=== PATIENT | female | born 1960 | race Caucasian/White ===

== ENCOUNTER 2016-11-29 10:12 | Day surgery (SDC) | payer OTHER ==
[2016-11-28 09:09] VITALS: Ht 160 cm; Wt 90.3 kg
[~2016-11-29] VITALS: Ht 160 cm; Wt 90.3 kg
[2016-11-29] VITALS (10 sets, daily range): BP systolic 120–168; BP diastolic 63–78; PULSE 53–78; RESP 16–21
[2016-11-29] MEDS ORDERED: LOSA50TA6 PO (13:03)
[2016-11-29] MEDS ORDERED: GEMF600T PO (13:03)
[2016-11-29] MEDS ORDERED: METF-382 PO (13:03)
[2016-11-29] MEDS ORDERED: OMEP20CA16 PO (13:03)
[2016-11-29] MEDS ORDERED: LEVO25TA53 PO (13:03)
[2016-11-29] MEDS ORDERED: HYD25 PO (13:03)
[2016-11-29] MEDS ORDERED: VIT D3 PO (13:03)
[2016-11-29] MEDS ORDERED: ATEN-51 PO (13:03)
[2016-11-29] MEDS ORDERED: GABA300C16 PO (13:03)
[2016-11-29] MEDS ORDERED: CEFAZOLIN 2 GM/50 ML (PMX) 50 ML IVPB ONE (13:30)
[2016-11-29] MEDS ORDERED: SOD CHLORIDE 0.9% 1,000 ML IV SCH (14:00)
[2016-11-29] MEDS ORDERED: BUPIVACAINE 0.25% (MPF) 30 ML INJ ONE (14:27)
[2016-11-29] MEDS ORDERED: LABETALOL HCL 20MG INJ IV PRN (14:30)
[2016-11-29] MEDS ORDERED: MEPERIDINE 25 MG INJ IV PRN (14:30)
[2016-11-29] MEDS ORDERED: MIDAZOLAM 1 MG/ML 2 ML INJ IV PRN (14:30)
[2016-11-29] MEDS ORDERED: ONDANSETRON 4 MG INJ IV PRN (14:30)
[2016-11-29] MEDS ORDERED: METOCLOPRAMIDE 10 MG INJ IV PRN (14:30)
[2016-11-29] MEDS ORDERED: FENTAnyl 50 MCG/ML VIAL IV PRN ×2 (14:30)
[2016-11-29] MEDS ORDERED: EPHEDrine SULFATE 50 MG/5 ML SYG IV PRN (14:30)
[2016-11-29] MEDS ORDERED: hydrALAzine 20 MG INJ IV PRN (14:30)
[2016-11-29] MEDS ORDERED: DIPHENHYDRAMINE 50 MG INJ IV PRN (14:30)
[2016-11-29] MEDS ORDERED: morphine (1 MG/ML) 10ML SYRINGE IV PRN ×2 (14:30)
[2016-11-29] MEDS ORDERED: HYDROmorphONE (0.2 MG/ML) 10ML SYG IV PRN ×2 (14:30)
[2016-11-29] MEDS ORDERED: LIDOCAINE 2% (SDV) 5 ML INJ ONE (14:38)
[2016-11-29] MEDS ORDERED: PROPOFOL 20 ML ONE (14:38)
[2016-11-29] MEDS ORDERED: MEPERIDINE 100 MG INJ ONE (14:39)
[2016-11-29] MEDS ORDERED: METOCLOPRAMIDE 10 MG INJ ONE (14:44)
[2016-11-29] MEDS ORDERED: ONDANSETRON 4 MG INJ ONE (14:44)
[2016-11-29] MEDS ORDERED: CEFAZOLIN 1 GM INJ ONE (14:44)
[2016-11-29] MEDS ORDERED: ATROPINE 1 MG/10 ML SYRINGE ONE (15:09)
[2016-11-29] MEDS ORDERED: BUPIVACAINE 0.25% (MPF) 30 ML INJ INJ ONE (15:29)
[2016-11-29] MEDS ORDERED: HYDROCODONE/APAP (5/325) TAB PO ONE (15:30)
--- NOTE | 2016-11-29 15:52 | OPR ---
DATE OF OPERATION: 11/29/2016 INDICATION: This is a 55-year-old female with a left face mass. She requests surgical excision. R isks, alternatives, benefits, and personnel were discussed with the patient. Patient expressed unde rstanding and consents to the operation. PREOPERATIVE DIAGNOSIS: Left face mass. POSTOPERATIVE DIAGNOSIS: Left face mass. OPERATION PERFORMED: 1. Excision of left mass with 3 cm size incision and 3 x 2 cm size mass. 2. Localized adjacent tissue transfer with the use of skin flaps. SURGEON: Filiberto Willson MD SPECIMEN: Left face mass. COMPLICATIONS: None. ANESTHESIA: General. DESCRIPTION OF PROCEDURE: The patient was taken to the OR, prepped and draped in the usual sterile fashion. Surgical timeout was performed. IV antibiotics were given. In the left midface there is a mass lesion. This was excised in elliptical fashion with a 15 blade and dissection cautery. Full- thickness excision was performed. There was good hemostasis. Due to the large tissue defect, local ized adjacent tissue transfer with the use of skin flaps was performed. Multilayer closure with int errupted 3-0 Vicryl and running 4-0 Monocryl. Local anesthesia was injected. Dry dressings were ap plied. Dictated By: FILIBERTO WILLSON MD SB/FORREST Conf#: [id number] DID#: [id number]
== END 2016-11-29 16:45 | disposition home or self-care (01) ==
LOC: SDS 10:12
PROVIDERS: ATTEND Surgery
DX: C44.310 Basal cell carcinoma of skin of unspecified parts of face (principal); E11.9 Type 2 diabetes mellitus without complications; I10 Essential (primary) hypertension; E03.9 Hypothyroidism, unspecified; E78.5 Hyperlipidemia, unspecified; E66.01 Morbid (severe) obesity due to excess calories; Z68.35 Body mass index [BMI] 35.0-35.9, adult
CPT/HCPCS: 14040; 82962; 88307; J0461; J0690; J2175; J2405; J2765; Z7512; Z7610

== ENCOUNTER 2017-04-17 14:11 | Day surgery (SDC) | payer OTHER ==
[2017-04-16 12:09] VITALS: BMI 35.5
[2017-04-17] VITALS (21 sets, daily range): BP systolic 136–174; BP diastolic 66–76; PULSE 54–59; RESP 17–18; Ht 160 cm; Wt 91.2 kg
[~2017-04-17] VITALS: Ht 160 cm; Wt 91.2 kg
[~2017-04-17 14:11] MED LIST: ATEN-51 PO; GABA300C16 PO; GEMF600T PO; HYD25 PO; LEVO25TA53 PO; LOSA50TA6 PO; METF500T4 PO; OMEP20CA16 PO; VIT D3 PO
[2017-04-17] MEDS ORDERED: LACTATED RINGER'S 1,000 ML IV* SCH (15:30)
[2017-04-17] MEDS ORDERED: FENTAnyl 50 MCG/ML VIAL ONE (16:25)
[2017-04-17] MEDS ORDERED: MIDAZOLAM 1 MG/ML 2 ML INJ ONE (16:25)
[2017-04-17] MEDS ORDERED: PROPOFOL 40 ML ONE (16:25)
[2017-04-17] MEDS ORDERED: METOCLOPRAMIDE 10 MG INJ ONE (16:25)
[2017-04-17] MEDS ORDERED: BUPIVACAINE 0.5% (SDV) 30 ML INJ ONE (16:30)
[2017-04-17] MEDS ORDERED: LIDOCAINE 1% (STERILE-PAK) 30 ML INJ ONE (16:30)
--- NOTE | 2017-04-17 17:30 | HPN ---
Date/Time of Note Date/Time of Note DATE: 04/17/17 TIME: 17:30 Interval H&P Admission Note Pt. seen H&P reviewed: No system changes JULY BOND Apr 17, 2017 17:30
[2017-04-17] MEDS ORDERED: CEFAZOLIN 1 GM INJ ONE (17:37)
[2017-04-17] MEDS ORDERED: PROPOFOL 20 ML ONE (18:10)
[2017-04-17] MEDS ORDERED: HYDROmorphONE (0.2 MG/ML) 10ML SYG IV PRN ×3 (18:30)
[2017-04-17] MEDS ORDERED: DIPHENHYDRAMINE 50 MG INJ IV PRN (18:30)
[2017-04-17] MEDS ORDERED: METOCLOPRAMIDE 10 MG INJ IV PRN (18:30)
[2017-04-17] MEDS ORDERED: OXYCODONE/ACETAMINOPHEN (5/325) TAB PO PRN ×2 (18:30)
[2017-04-17] MEDS ORDERED: ONDANSETRON 4 MG INJ IV PRN (18:30)
[2017-04-17] MEDS ORDERED: MEPERIDINE 25 MG INJ IV PRN (18:30)
[2017-04-17] MEDS ORDERED: HYDROCODONE/APAP (5/325) TAB PO PRN (19:30)
--- NOTE | 2017-05-09 12:51 | OPR ---
DATE OF OPERATION: 04/17/2017 PREOPERATIVE DIAGNOSES: 1. Right carpal tunnel syndrome. 2. Left carpal tunnel syndrome. 3. 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 POSTOPERATIVE DIAGNOSES: 1. Right carpal tunnel syndrome. 2. Left carpal tunnel syndrome. 3. 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 OPERATION PERFORMED: 1. Right carpal tunnel release, open. 2. Left carpal tunnel release, open. 3. Left middle finger dorsal PIPJ retinacular cyst excision. SURGEON: Ranjan Sun MD ANESTHESIA: Local plus MAC. OPERATIVE FINDINGS AT SURGERY: Compression of the median nerve at the carpal tunnel bilaterally with cyst at the dorsal PIPJ of the left middle finger. INDICATIONS FOR PROCEDURE: A 56-year-old female with long standing bilateral carpal tunnel symptoms. She was seen in the clinic and diagnosed with carpal tunnel syndrome. After failing conservative management she elected to proceed with surgical intervention, understanding the risks and benefits. Of note, she also had a cyst at the left middle finger dorsal PIPJ which was bothersome to her and she wanted this removed at the same time. She elected to proceed, understanding the risks and benefits. DESCRIPTION OF PROCEDURE: The patient was seen in the preoperative area and all further questions were answered. Again she gave informed consent, understanding the risks and benefits. She was taken to the operative suite and placed in supine position. She was placed under local and MAC, tourniquet placed on bilateral upper extremities. Ancef 2 grams given. Bilateral upper extremities were prepped and draped in the usual sterile fashion. Local anesthesia was used to perform a local block for bilateral upper extremities. A 5 mL volume of a 50/50 mixture of 0.5 percent Marcaine and 1 percent Lidocaine was injected at the right carpal tunnel site, and a total 10 mL volume of a 50/50 mixture of 0.5 Marcaine and 1 percent lidocaine was injected at the left carpal tunnel site and left middle finger to perform a digital block. Attention was first turned to the right carpal tunnel release. An Esmarch bandage was used to exsanguinate the extremity and the tourniquet inflated to 250 mmHg. A 2 cm incision at the base of the palm was utilized with sharp dissection carried down through skin and subcutaneous tissue. The palmar aponeurosis was identified and was incised along its ulnar border. Retractors were deepened and the transverse carpal ligament was identified and was incised along its ulnar border approximately 3 mm radial to the hook of the hamate. Retractor placed distally and the ligament was divided at its distal extent under direct visualization. Attention turned proximally and scissor dissection divided the antebrachial fascia off the transverse carpal ligament and the ligament was divided along its ulnar border under direct visualization. The wound was copiously irrigated and skin closed with 4-0 nylon. Xeroform was placed over the wound followed by sterile gauze, Webril and Jareth bandage. The tourniquet was deflated after 15 minutes and attention was then turned to the left upper extremity. Esmarch bandage was used to exsanguinate the extremity and tourniquet inflated to 250 mmHg. Attention was first turned to the left carpal tunnel release and a 2 cm incision was utilized at the base of the palm. An identical procedure was performed to the right wrist with incision of the palmar aponeurosis and the transverse carpal ligament along its ulnar border. The wound was copiously irrigated and skin closed with 4-0 nylon. Xeroform was placed over the wound. Attention was then turned to the left middle finger. There was a dorsal cyst at the PIPJ. A longitudinal incision was made with sharp dissection carried down through skin and subcutaneous tissue. The cyst was identified with scissor dissection, and the cyst was arising from the lateral band. The cyst was completely excised and the wound was copiously irrigated. Skin closed with 5-0 nylon. Xeroform placed over the wound followed by sterile gauze for both wounds, Webril and an Jareth bandage. The tourniquet was deflated on the left side after 20 minutes. The patient was taken to the postoperative suite in stable condition, tolerated the procedure well without complication. SPECIMENS: None. ESTIMATED BLOOD LOSS: 5 mL. COUNTS: Sponge, instrument and needle counts correct. TOURNIQUET TIME: 15 minutes on the right, 20 minutes on the left. CONDITION ON DISCHARGE: Stable. Dictated By: Ranjan Sun MD /donato/renay /Document#: [id number]
== END 2017-04-17 20:43 | disposition home or self-care (01) ==
LOC: SDS 14:11
PROVIDERS: ATTEND Orthopaedic Surgery Hand Surgery
DX: G56.03 Carpal tunnel syndrome, bilateral upper limbs (principal); M67.442 Ganglion, left hand; K21.9 Gastro-esophageal reflux disease without esophagitis; E78.5 Hyperlipidemia, unspecified; E11.9 Type 2 diabetes mellitus without complications; I10 Essential (primary) hypertension; E66.9 Obesity, unspecified; Z68.35 Body mass index [BMI] 35.0-35.9, adult; E03.9 Hypothyroidism, unspecified
CPT/HCPCS: 26160; 64721; 82962; 88304; J0690; J2250; J2765; J3010; Z7512; Z7610